=== PATIENT | male | born 1985 | race Caucasian/White ===

== ENCOUNTER → 2025-04-03 | Outpatient (CLI) | payer MEDICAID, SELFPAY ==
--- NOTE | 2025-04-03 09:39 | XR_ITS ---
Examination: Esophagram standard Fluoroscopy 11 spot fluoroscopic films of the esophagus Upright PA chest single view Upright soft tissue lateral neck single view Date and time: 12/04/2024 1026 hours INDICATIONS: Difficulty swallowing beginning 2 months ago FINDINGS: Upright PA chest single view demonstrates normal heart size, clear lungs Soft tissue lateral neck demonstrates normal epiglottis no prevertebral soft tissue prominence Primary peristaltic esophageal waves are noted There is moderate intermittent gastroesophageal reflux Moderate to large sliding esophageal hernia No constricting esophageal lesion No esophageal ulcerations IMPRESSION: Moderate intermittent gastroesophageal reflux Moderate to large sliding esophageal hernia.
== END | disposition home or self-care (01) ==
LOC: CDIM 08:33
PROVIDERS: PCP Family Medicine; Referring Provider Family Medicine; Visit Provider Family Medicine
DX: K21.9 Gastro-esophageal reflux disease without esophagitis (principal); K44.9 Diaphragmatic hernia without obstruction or gangrene
CPT/HCPCS: 74220; A4649